=== PATIENT | female | born 1955 | race Caucasian/White ===

== ENCOUNTER 2023-10-26 12:12 | Observation (INO) | payer MEDICARE, SELFPAY ==
[2023-10-26] VITALS (11 sets, daily range): BP systolic 119–161; BP diastolic 38–81; PULSE 50–82; RESP 16–20; TEMP 36.6–37; O2SAT 94–99; BMI 36.6
--- NOTE | 2023-10-26 12:26 | PC.NURSE ---
DR MEDINA AT BEDSIDE
--- NOTE | 2023-10-26 12:33 | XR_ITS ---
PROCEDURE INFORMATION: Exam: XR Left Femur Exam date and time: 10/26/2023 1:10 PM Age: 68 years old Clinical indication: Injury or trauma; Fall; Sprain or strain; Thigh or upper leg; Left; Injury date: Today; Additional info: Fall, leg injury TECHNIQUE: Imaging protocol: Radiologic exam of the left femur. Views: 2 views. COMPARISON: CR XR KNEE LT 3V 07/01/2023 13:10 FINDINGS: Bones/joints: [id number] chronic degenerative changes of the left hip. The left femur appears intact. Again noted is a subtle irregularity of the lateral femoral condyle. A nondisplaced fracture cannot be excluded. Consider CT evaluation. Small to moderate left knee effusion. Previous ORIF of the proximal left tibia Soft tissues: Unremarkable. IMPRESSION: 1. [id number] chronic degenerative changes of the left hip 2. Small to moderate left knee effusion 3. Vague cortical irregularity of the lateral femoral condyle. Consider CT to evaluate for fracture
--- NOTE | 2023-10-26 12:33 | XR_ITS ---
PROCEDURE INFORMATION: Exam: XR Left Knee Exam date and time: 10/26/2023 1:10 PM Age: 68 years old Clinical indication: Injury or trauma; Fall; Sprain or strain; Patella or knee; Left; Injury date: Today; Prior surgery; Surgery date: 6+ months; Additional info: Left knee injury TECHNIQUE: Imaging protocol: Radiologic exam of the left knee. Views: 3 views. COMPARISON: CR XR FEMUR LT 2V 07/01/2023 13:10 FINDINGS: Bones/joints: There is a subtle irregularity along the lateral femoral condyle. Query nondisplaced fracture. Consider CT evaluation. Small to moderate left knee effusion. Prior ORIF of the proximal left tibia Soft tissues: No gas in the soft tissues. IMPRESSION: Subtle irregularity at the lateral femoral condyle, possibly representing a nondisplaced fracture. Consider CT evaluation. There is a small to moderate left knee effusion
--- NOTE | 2023-10-26 12:33 | XR_ITS ---
PROCEDURE INFORMATION: Exam: XR Left Tibia and Fibula Exam date and time: 10/26/2023 1:10 PM Age: 68 years old Clinical indication: Injury or trauma; Fall; Sprain or strain; Lower leg; Left; Injury date: Today; Additional info: Fall, injury TECHNIQUE: Imaging protocol: Radiologic exam of the left tibia and fibula. Views: 2 views. COMPARISON: CR XR KNEE LT 3V 07/01/2023 13:10 FINDINGS: Bones/joints: There is normal anatomic alignment of the left tibia and fibula at the knee and ankle. Previous ORIF of the proximal left tibia. There are calcaneal bone spurs. Again noted is a suspected lateral femoral condyle fracture. Soft tissues: Normal. IMPRESSION: 1. Prior ORIF of the proximal left tibia no evidence of an acute left tib-fib fracture 2. Suspected lateral femoral condyle fracture
--- NOTE | 2023-10-26 12:34 | HMH.EDGENADL ---
Discharge Plan Disposition Patient Disposition: Admitted Clinical Impressions Clinical Impression: Fracture of femoral condyle, left, closed Discharge ED Provider: Kiran Paz General Adult HPI <Torrie Pelaez MD - Last Filed: 10/27/23 07:59> General Chief complaint: Fall Stated complaint: L KNEE PAIN Time Seen by Provider: 10/26/23 12:24 Mode of Arrival: EMS Source of Information: Patient Limitations: No Limitations Description of Symptoms (Recalled from ER Triage Doc. by RN): pt was walking around new build and got tripped up ground level when surface type changed she landed on left leg which has previously had surgery done on it. pt pms is intact however bruising to top of left foot noted. pt states pain is mainly behind left knee History of Present Illness HPI narrative: 68-year-old female presenting today with left knee pain after a fall. Mechanical ground-level fall fell directly onto her left knee. She has a history of a tibial plateau fracture treated operatively 3 years ago. States she feels some paresthesias in her left lower extremity and difficulty with any type of extensor mechanism. No injuries elsewhere. Related Data Home Medications Medication Instructions Recorded Confirmed acetaminophen 325 mg tablet 1,000 mg PO NEEDED PRN Pain 10/26/23 10/26/23 (Tylenol) buspirone 10 mg tablet 10 mg PO BID 10/26/23 10/27/23 chlorthalidone 25 mg tablet 25 mg PO DAILY 10/26/23 10/27/23 escitalopram oxalate 10 mg tablet 10 mg PO DAILY 10/26/23 10/26/23 gabapentin 600 mg tablet 600 mg PO TIDP PRN Neuropathic Pain 10/26/23 10/27/23 ibuprofen 800 mg tablet 800 mg PO Q6HP PRN Pain, Mild 10/26/23 10/27/23 montelukast 10 mg tablet 10 mg PO HS 10/26/23 10/26/23 tizanidine 4 mg tablet 4 mg PO HSP Sleep 10/26/23 10/27/23 valsartan 80 mg tablet 80 mg PO DAILY 10/26/23 10/26/23 Allergies Allergy/AdvReac Type Severity Reaction Status Date / Time No Known Allergies Allergy Verified 10/26/23 12:25 PFS <Torrie Pelaez MD - Last Filed: 10/27/23 07:59> PFS Disclaimer: The information contained in this section may have been updated after the patient was seen, as this information can be updated by other users. Medical History (Updated 10/26/23 @ 17:29 by Sissy Helms RN) Left tibial fracture Depression Hypertension Aortic stenosis Surgical History (Updated 10/26/23 @ 17:29 by Sissy Helms RN) H/O breast biopsy Hx of cholecystectomy History of appendectomy H/O left knee surgery H/O bariatric surgery Hx of cardiac catheterization Social History (Updated 10/26/23 @ 16:23 by Kiran Paz MD) Smoking Status: Never smoker alcohol intake: never current occupational status: other Travel in the last 8 weeks: None <Kiran Paz MD - Last Filed: 10/26/23 16:23> ROS Obtained: Yes Systems reviewed as appropriate & no additional complaints except as documented Physical Exam <Torrie Pelaez MD - Last Filed: 10/27/23 07:59> Extremities Exam Extremities exam: Present other (Patient has tenderness throughout the left knee distal femur and proximal tib-fib location she is unable to extend her knee extensor mechanism unable to be measured given her pain. No significant swelling erythema or soft tissue abnormality) <Kiran Paz MD - Last Filed: 10/26/23 16:23> General General appearance: alert and in no apparent distress Respiratory Respiratory exam: Absent respiratory distress Cardiovascular Cardiovascular exam: Present regular rate Neurological Exam Neurological exam: Present alert Medical Decision Making <Torrie Pelaez MD - Last Filed: 10/27/23 07:59> Vital Signs: 10/26/23 12:13 10/26/23 12:31 10/26/23 13:10 Temperature 97.8 F Temperature Source Oral Pulse Rate 51 L 52 L Pulse Rate [Right Radial] 51 L Respiratory Rate 20 16 16 Blood Pressure 141/71 H 147/53 H Blood Pressure [Right Arm] 150/52 H Blood Pressure Mean 74 84 Blood Pressure Mean [Right Arm] 84 02 Sat by Pulse Oximetry 99 98 96 Oxygen Delivery Method Room Air 10/26/23 13:31 10/26/23 13:54 10/26/23 14:00 Temperature Temperature Source Pulse Rate 59 L Pulse Rate [Right Radial] Respiratory Rate 16 Blood Pressure 119/38 L 135/57 L 150/59 H Blood Pressure [Right Arm] Blood Pressure Mean 65 70 81 Blood Pressure Mean [Right Arm] 02 Sat by Pulse Oximetry 96 Oxygen Delivery Method 10/26/23 15:01 10/26/23 15:31 10/26/23 16:01 Temperature Temperature Source Pulse Rate Pulse Rate [Right Radial] Respiratory Rate Blood Pressure 130/49 L 141/80 H 161/70 H Blood Pressure [Right Arm] Blood Pressure Mean 77 86 97 Blood Pressure Mean [Right Arm] 02 Sat by Pulse Oximetry Oxygen Delivery Method 10/26/23 16:36 Temperature 98.6 F Temperature Source Pulse Rate 50 L Pulse Rate [Right Radial] Respiratory Rate 20 Blood Pressure 135/44 L Blood Pressure [Right Arm] Blood Pressure Mean Blood Pressure Mean [Right Arm] 02 Sat by Pulse Oximetry Oxygen Delivery Method Room Air Lab Data 10/27/23 05:32 10/27/23 05:32 Orders (Tests/Meds): ED MEDICATIONS Generic Name Dose Route Start Last Admin Trade Name Freq PRN Reason Stop Dose Admin Acetaminophen 650 mg 10/26/23 16:29 Acetaminophen 325mg Tab PO 11/25/23 16:28 Q4HP PRN Fever or Mild Pain (1-3) Hydrocodone Bitart/Acetaminophen 1 tab 10/26/23 19:42 10/27/23 07:40 Hydrocodone/Apap 5/325 Mg Tablet PO 11/25/23 19:41 1 tab Q4HP PRN Administration MODERATE TO SEVERE PAIN Albuterol/Ipratropium 3 ml 10/26/23 16:55 Ipratropium/Albuterol 3 Ml Neb IH 11/25/23 16:54 Q4HP PRN Shortness Of Breath Morphine Sulfate 2 mg 10/26/23 16:29 10/27/23 05:07 Morphine 4mg/Ml Syringe IV 11/25/23 16:28 2 mg Q4HP PRN Administration Severe Pain (7-10) Ondansetron HCl 4 mg 10/26/23 16:29 Ondansetron 4mg/2ml Vial IV 11/25/23 16:28 Q8HP PRN Nausea Sodium Chloride 10 ml 10/26/23 17:51 Sodium Chloride 0.9% 10ml Flush Syringe IV 11/25/23 17:50 NEEDED PRN Maintain IV Site Discontinued Medications Generic Name Dose Route Start Last Admin Trade Name Freq PRN Reason Stop Dose Admin Morphine Sulfate 4 mg 10/26/23 12:33 10/26/23 12:49 Morphine 4mg/Ml Syringe IV 10/26/23 12:34 4 mg ONCE ONE Administration Ondansetron HCl 4 mg 10/26/23 12:48 10/26/23 12:50 Ondansetron 4mg/2ml Vial IV 10/26/23 12:49 4 mg ONCE ONE Administration Oxycodone HCl 5 mg 10/26/23 15:28 10/26/23 15:40 Oxycodone 5mg Immediate Release Tablet PO 10/26/23 15:29 5 mg ONCE ONE Administration ORDERS Category Date Time Status CT knee LT wo con Stat Cat Scan 10/26/23 14:11 Completed Consult to Orthopedic Surgery [CONS] Routine Cons 10/26/23 16:43 Ordered Femur XR left 2 views [XR femur LT 2V] Stat Exams 10/26/23 12:33 Completed Knee XR left 3 views [XR knee LT 3V] Stat Exams 10/26/23 12:33 Completed Tibia/fibula XR left 2 views [XR tibia fibula LT 2V] Exams 10/26/23 12:33 Completed Stat BMP [Basic Metabolic Panel] Stat Lab 10/26/23 17:30 Completed Basic Metabolic Panel AML[facility] Lab 10/27/23 05:32 Completed Basic Metabolic Panel [facility] Lab 10/28/23 06:00 Ordered Basic Metabolic Panel [facility] Lab 10/29/23 06:00 Ordered CBC w/Auto Diff [Complete Blood Count Auto Diff] Stat Lab 10/26/23 17:30 Completed Complete Blood Count Auto Diff AML[facility] Lab 10/27/23 05:32 Completed Complete Blood Count Auto Diff [facility] Lab 10/28/23 06:00 Ordered Complete Blood Count Auto Diff AMLAB Lab 10/29/23 06:00 Ordered Medical Decision Narrative: 68-year-old with distal femur knee and proximal tibia pain after a ground-level fall. Will get plain films differential includes periprosthetic fracture, hardware loosening, etc. Morphine has been administered will reassess after her x-rays are performed and interpreted. <Kiran Paz MD - Last Filed: 10/26/23 16:23> Sancho Inquiry Pt receiving controlled substance: No Vital Signs: 10/26/23 12:13 10/26/23 12:31 10/26/23 13:10 Temperature 97.8 F Temperature Source Oral Pulse Rate 51 L 52 L Pulse Rate [Right Radial] 51 L Respiratory Rate 20 16 16 Blood Pressure 141/71 H 147/53 H Blood Pressure [Right Arm] 150/52 H Blood Pressure Mean 74 84 Blood Pressure Mean [Right Arm] 84 02 Sat by Pulse Oximetry 99 98 96 Oxygen Delivery Method Room Air 10/26/23 13:31 10/26/23 13:54 10/26/23 14:00 Temperature Temperature Source Pulse Rate 59 L Pulse Rate [Right Radial] Respiratory Rate 16 Blood Pressure 119/38 L 135/57 L 150/59 H Blood Pressure [Right Arm] Blood Pressure Mean 65 70 81 Blood Pressure Mean [Right Arm] 02 Sat by Pulse Oximetry 96 Oxygen Delivery Method 10/26/23 15:01 10/26/23 15:31 10/26/23 16:01 Temperature Temperature Source Pulse Rate Pulse Rate [Right Radial] Respiratory Rate Blood Pressure 130/49 L 141/80 H 161/70 H Blood Pressure [Right Arm] Blood Pressure Mean 77 86 97 Blood Pressure Mean [Right Arm] 02 Sat by Pulse Oximetry Oxygen Delivery Method 10/26/23 16:36 Temperature 98.6 F Temperature Source Pulse Rate 50 L Pulse Rate [Right Radial] Respiratory Rate 20 Blood Pressure 135/44 L Blood Pressure [Right Arm] Blood Pressure Mean Blood Pressure Mean [Right Arm] 02 Sat by Pulse Oximetry Oxygen Delivery Method Room Air Orders (Tests/Meds): ED MEDICATIONS Generic Name Dose Route Start Last Admin Trade Name Freq PRN Reason Stop Dose Admin Acetaminophen 650 mg 10/26/23 16:29 Acetaminophen 325mg Tab PO 11/25/23 16:28 Q4HP PRN Fever or Mild Pain (1-3) Hydrocodone Bitart/Acetaminophen 1 tab 10/26/23 19:42 10/27/23 07:40 Hydrocodone/Apap 5/325 Mg Tablet PO 11/25/23 19:41 1 tab Q4HP PRN Administration MODERATE TO SEVERE PAIN Albuterol/Ipratropium 3 ml 10/26/23 16:55 Ipratropium/Albuterol 3 Ml Neb IH 11/25/23 16:54 Q4HP PRN Shortness Of Breath Morphine Sulfate 2 mg 10/26/23 16:29 10/27/23 05:07 Morphine 4mg/Ml Syringe IV 11/25/23 16:28 2 mg Q4HP PRN Administration Severe Pain (7-10) Ondansetron HCl 4 mg 06/02/24 16:29 Ondansetron 4mg/2ml Vial IV 11/25/23 16:28 Q8HP PRN Nausea Sodium Chloride 10 ml 10/26/23 17:51 Sodium Chloride 0.9% 10ml Flush Syringe IV 11/25/23 17:50 NEEDED PRN Maintain IV Site Discontinued Medications Generic Name Dose Route Start Last Admin Trade Name Freq PRN Reason Stop Dose Admin Morphine Sulfate 4 mg 10/26/23 12:33 10/26/23 12:49 Morphine 4mg/Ml Syringe IV 10/26/23 12:34 4 mg ONCE ONE Administration Ondansetron HCl 4 mg 10/26/23 12:48 10/26/23 12:50 Ondansetron 4mg/2ml Vial IV 10/26/23 12:49 4 mg ONCE ONE Administration Oxycodone HCl 5 mg 10/26/23 15:28 10/26/23 15:40 Oxycodone 5mg Immediate Release Tablet PO 10/26/23 15:29 5 mg ONCE ONE Administration ORDERS Category Date Time Status CT knee LT wo con Stat Cat Scan 10/26/23 14:11 Completed Consult to Orthopedic Surgery [CONS] Routine Cons 10/26/23 16:43 Ordered Femur XR left 2 views [XR femur LT 2V] Stat Exams 10/26/23 12:33 Completed Knee XR left 3 views [XR knee LT 3V] Stat Exams 10/26/23 12:33 Completed Tibia/fibula XR left 2 views [XR tibia fibula LT 2V] Exams 10/26/23 12:33 Completed Stat BMP [Basic Metabolic Panel] Stat Lab 10/26/23 17:30 Completed Basic Metabolic Panel AMLAB Lab 10/27/23 05:32 Completed Basic Metabolic Panel AMLAB Lab 10/28/23 06:00 Ordered Basic Metabolic Panel [facility]AB Lab 10/29/23 06:00 Ordered CBC w/Auto Diff [Complete Blood Count Auto Diff] Stat Lab 10/26/23 17:30 Completed Complete Blood Count Auto Diff AMLAB Lab 10/27/23 05:32 Completed Complete Blood Count Auto Diff AMLAB Lab 10/28/23 06:00 Ordered Complete Blood Count Auto Diff AMLAB Lab 10/29/23 06:00 Ordered Medical Decision Narrative: 68-year-old with distal femur knee and proximal tibia pain after a ground-level fall. Will get plain films differential includes periprosthetic fracture, hardware loosening, etc. Morphine has been administered will reassess after her x-rays are performed and interpreted. Kiran Paz upon assumption of care patient was hemodynamically stable. X-ray shows questionable fracture, CT was obtained and formal read pending at my assumption of care. It appears on my informal interpretation that there is a lateral condyle fracture of the left femur. Formal read shows nondisplaced lateral femoral condyle fracture with left knee hemarthrosis. Orthopedics is not on-call therefore the case was discussed with [facility] regarding management. For continued pain oxycodone was administered. The case was discussed with [facility] orthopedics on-call who recommended TROM brace at 30 degrees, nonweightbearing and follow-up in clinic as long as ligamentous exam was not frankly unstable. Upon my exam knee is grossly stable from a ligamentous standpoint. Unfortunately we do not have TROM braces here. My alternative plan was to put patient in extension, remove the brace twice daily with nonweightbearing passive range of motion to mitigate risk of DVT. However patient is unsafe to discharge home at this time given that she cannot transfer safely nor get into her home as there are multiple steps. Given this the case was discussed with hospital medicine, I think the most appropriate plan is to admit the patient to their service as nonweightbearing status. Orthopedics resumes inpatient consultation tomorrow and they can determine optimal bracing, nonweightbearing transfers with physical therapy and appropriate disposition at that time. Case was discussed with hospital medicine who will admit the patient their service for continued evaluation at this time. Critical Care <Kiran Paz MD - Last Filed: 10/26/23 16:23> Critical Care Time Critical Care Time: No
[2023-10-26] MEDS: MORPHINE 4MG/ML SYRINGE 4 MG IV (12:49)
[2023-10-26] MEDS: ONDANSETRON 4MG/2ML VIAL 4 MG IV (12:50)
--- NOTE | 2023-10-26 14:10 | PC.NURSE ---
attempted to ambulate patient however patient unable to bear weight, ER Md notified
--- NOTE | 2023-10-26 14:11 | CT_ITS ---
PROCEDURE INFORMATION: Exam: CT Left Lower Extremity Without Contrast, Knee Exam date and time: 10/26/2023 2:24 PM Age: 68 years old Clinical indication: Injury or trauma; Fall; Sprain or strain; Patella or knee; Left; Injury date: Today; Prior surgery; Surgery date: 6+ months; Additional info: Knee injury, unable to bear weight TECHNIQUE: Imaging protocol: CT of the left lower extremity without contrast was performed. Exam focused on the knee. Radiation optimization: All CT scans at this facility use at least one of these dose optimization techniques: automated exposure control; mA and/or kV adjustment per patient size (includes targeted exams where dose is matched to clinical indication); or iterative reconstruction. COMPARISON: CR XR KNEE LT 3V 07/01/2023 13:10 FINDINGS: Bones/joints: There is a nondisplaced fracture through the lateral femoral condyle of the left knee. Previous ORIF of the proximal left tibia. There is a high density left knee effusion likely representing a hemarthrosis Soft tissues: The structures of the popliteal fossa are unremarkable. IMPRESSION: Nondisplaced lateral femoral condyle fracture of the left knee with left knee hemarthrosis
--- NOTE | 2023-10-26 14:11 | PC.NURSE ---
PT ATTEMPTED TO STAND ON L KNEE , AND WAS UNABLE TO BEAR ANY WEIGHT
--- NOTE | 2023-10-26 14:17 | PC.NURSE ---
PT TO CT
--- NOTE | 2023-10-26 15:21 | PC.NURSE ---
DR DAO AT BEDSIDE TO UPDATE PT
--- NOTE | 2023-10-26 15:21 | PC.NURSE ---
IMAGES POWER SHARED WITH [facility]
--- NOTE | 2023-10-26 15:22 | PC.NURSE ---
SPOKE WITH [facility] FOR ORTHO CONSULT, WILL CALL BACK ONCE IMAGES ARE RECEIVED
[2023-10-26] MEDS: OXYCODONE 5MG IMMEDIATE RELEASE TABLET 5 MG PO (15:40)
--- NOTE | 2023-10-26 15:53 | PC.NURSE ---
DR DAO SPEAKING WITH [facility]
--- NOTE | 2023-10-26 16:23 | PC.NURSE ---
[employer] NOTIFIED OF ADMISSION
--- NOTE | 2023-10-26 16:34 | PC.NURSE ---
Called report to lucius brooks on 2nd floor and answered all questions
--- NOTE | 2023-10-26 16:39 | P.HP_ITS ---
History of Present Illness *Admission Date: 10/26/23 *Reason for visit:: fall *History of present illness: Patient is a 68-year-old female who presents to the hospital after a fall. According to patient she reported directly onto her left knee, ankle and the ground-level fall, she hit her knee Into the ground 3 has noticed weakness in her left leg below the knee patient mentions she has pain 10/10 intensity, nonradiating, localized, previous constant sharp. Patient denied associated dizziness lightheadedness diarrhea constipation dysuria fevers and chills chest pain shortness of breath and abdominal pain. [facility] Disclaimer: The information contained in this section may have been updated after the patient was seen, as this information can be updated by other users. Social History (Updated 10/26/23 @ 16:23 by Kiran Paz MD) Smoking Status: Never smoker alcohol intake: never current occupational status: other Travel in the last 8 weeks: None Review of Systems Review of Systems Review of systems:: pertinent systems reviewed and negative unless documented below Meds Home Medications and Allergies New Prescriptions to Start Prescriptions: Allergies Allergy/AdvReac Type Severity Reaction Status Date / Time No Known Allergies Allergy Verified 10/26/23 12:25 Exam Data for Last 24 hours Vital signs and Labs for Last 24 Hours: Temp Pulse Resp BP Pulse Ox O2 Del Method 98.6 F 50 L 20 135/44 L 96 Room Air 10/26/23 16:36 10/26/23 16:36 10/26/23 16:36 10/26/23 16:36 10/26/23 13:31 10/26/23 16:36 I & O for Last 24 hours: Intake & Output 10/23/23 10/24/23 10/25/23 10/26/23 23:59 23:59 23:59 23:59 Weight 99.79 kg Constitutional Constitutional: no acute distress *Routine HEENT Exam Head: Present normocephalic Eye: Present EOMI and PERRL ENT: Present mucous membranes moist *Routine Neck Exam Neck: Present supple; Absent lymphadenopathy *Routine Respiratory Exam Respiratory: Present CTA bilaterally *Routine Cardiovascular Exam Cardiovascular: Present RRR *Routine Abdominal Exam Abdominal: Present soft and normoactive bowel sounds; Absent tenderness *Routine Rectal Exam Rectal:: deferred *Routine Genitalia Exam Genitalia:: deferred *Routine Extremities Exam Extremities: Absent cyanosis, clubbing or edema Comments: left knee is bruised, swollen, tender *Routine Skin Exam Skin: Present warm; Absent rash *Routine Neurological Exam Neurological: Present alert and oriented X3 Assessment and Plan *Assessment and plan (1) Fracture of femoral condyle, left, closed: Status: Acute Category: Medical Code(s): S72.412A - Displaced unspecified condyle fracture of lower end of left femur, initial encounter for closed fracture Plan Patient is a 68-year-old female who presents to the hospital after a fall. According to patient she reported directly onto her left knee, ankle and the ground-level fall, she hit her knee Into the ground 3 has noticed weakness in her left leg below the knee patient mentions she has pain 10/10 intensity, nonradiating, localized, previous constant sharp. Patient denied associated dizziness lightheadedness diarrhea constipation dysuria fevers and chills chest pain shortness of breath and abdominal pain. Assessment and plan Mechanical fall Nondisplaced fracture of the left lateral femoral condyle Hemarthrosis Consult PT/OT Consult orthopedics Pain control Bedrest Nonweightbearing for now Knee brace up to orthopedics X-ray left knee, Tibia-fibula revealed HTN resume home meds, meds need to be comfirmed History of Asthma - resume home meds, meds need to be confirmed Check CBC, BMP DVT prophylaxis-heparin
--- NOTE | 2023-10-26 16:55 | PC.NURSE ---
arrived by stretcher from ED
[2023-10-26 17:37] LABS: Basophils # 0.1 K/mm3 (0-0.2); Basophils % 0.6 % (0.1-2.0); Eosinophils # 0.3 K/mm3 (0.0-0.4); Eosinophils % 4.6 % (0.1-12.0); Hematocrit 34.1 % (37.0-47.0); Hemoglobin 10.5 g/dL (12.2-16.2); Lymphocytes # 1.6 K/mm3 (0.7-4.5); Lymphocytes % 21.9 % (10-50); Mean Corpuscular HGB Conc 30.7 g/dL (31.8-35.4); Mean Corpuscular Hemoglobin 27.1 pg (27.0-31.2); Mean Corpuscular Volume 88.3 fl (81-99); Mean Platelet Volume 8.9 fl (7.4-10.4); Monocytes # 0.3 K/mm3 (0.1-1.0); Monocytes % 4.1 % (1.7-9.3); Neutrophils # 5.1 K/mm3 (1.8-7.8); Neutrophils % 68.9 % (37.0-80.0); Platelet Count 328 K/mm3 (142-424); Red Blood Count 3.86 M/mm3 (4.20-5.40); Red Cell Distribution Width 15.5 % (11.5-17.5); White Blood Count 7.4 K/mm3 (4.8-10.8)
[2023-10-26] MEDS: MORPHINE 4MG/ML SYRINGE 2 MG IV ×2 (17:37→21:50)
[2023-10-26 17:42] LABS: Chloride 102 mmol/L (98-107)
[2023-10-26 17:43] LABS: Potassium 3.7 mmoL/L (3.5-5.1); Sodium 141 mmol/L (136-145)
[2023-10-26 17:45] LABS: Blood Urea Nitrogen 13 mg/dl (7-17); Creatinine Clearance Estimated 86 mL/min (50-200); Estimated Glomerular Filt Rate 83 ml/min (>60); GFR (African American) 101 ML/MIN (>60)
[2023-10-26 17:46] LABS: Anion Gap 13.7 mEq/L (5-15); Calcium 9.4 mg/dl (8.4-10.2); Carbon Dioxide 29 mmol/L (22.0-30.0); Glucose 131 mg/dl (74-100)
[2023-10-26] MEDS: HYDROCODONE/APAP 5/325 MG TABLET 1 TAB PO ×2 (19:49→23:26)
[2023-10-27] MEDS: HYDROCODONE/APAP 5/325 MG TABLET 1 TAB PO ×2 (03:48→07:40)
[2023-10-27 04:00] VITALS: BP 119/68; PULSE 55; RESP 16; TEMP 36.8; O2SAT 94; BMI 39.0
[2023-10-27] MEDS: MORPHINE 4MG/ML SYRINGE 2 MG IV ×3 (05:07→13:42)
--- NOTE | 2023-10-27 05:15 | PC.NURSE ---
Pt is A&O, on room air, and has rested throughout the night. Pt has complained of some pain in her left knee. Pain meds were provided as well as an ice pack in which pt states really helped reduce the pain. No other complaints at this time, call light within reach.
[2023-10-27 06:13] LABS: Basophils # 0.1 K/mm3 (0-0.2); Basophils % 0.9 % (0.1-2.0); Chloride 102 mmol/L (98-107); Eosinophils # 0.4 K/mm3 (0.0-0.4); Eosinophils % 6.1 % (0.1-12.0); Hematocrit 31.5 % (37.0-47.0); Hemoglobin 9.7 g/dL (12.2-16.2); Lymphocytes # 1.6 K/mm3 (0.7-4.5); Lymphocytes % 25.7 % (10-50); Mean Corpuscular HGB Conc 30.7 g/dL (31.8-35.4); Mean Corpuscular Hemoglobin 27.5 pg (27.0-31.2); Mean Corpuscular Volume 89.4 fl (81-99); Mean Platelet Volume 8.3 fl (7.4-10.4); Monocytes # 0.3 K/mm3 (0.1-1.0); Monocytes % 4.5 % (1.7-9.3); Neutrophils # 3.9 K/mm3 (1.8-7.8); Neutrophils % 62.8 % (37.0-80.0); Platelet Count 311 K/mm3 (142-424); Red Blood Count 3.52 M/mm3 (4.20-5.40); Red Cell Distribution Width 15.4 % (11.5-17.5); White Blood Count 6.2 K/mm3 (4.8-10.8)
[2023-10-27 06:14] LABS: Potassium 3.5 mmoL/L (3.5-5.1); Sodium 138 mmol/L (136-145)
[2023-10-27 06:17] LABS: Anion Gap 5.5 mEq/L (5-15); Blood Urea Nitrogen 13 mg/dl (7-17); Calcium 8.9 mg/dl (8.4-10.2); Carbon Dioxide 34 mmol/L (22.0-30.0); Creatinine Clearance Estimated 92 mL/min (50-200); Estimated Glomerular Filt Rate 83 ml/min (>60); GFR (African American) 101 ML/MIN (>60); Glucose 88 mg/dl (74-100)
--- NOTE | 2023-10-27 07:43 | PC.NURSE ---
pt called out asking for pain meds. when entering the room, patient had home meds out and taking them. pt stating she was told she was observation and to take her own meds . patient stated she took her gabapentin, chlorthalidone, aspirin, loratadine, and buspirone. instructed pt not to take any more of her home meds, home meds put away in patients room. pt knows if she needs any medicine to let this nurse know so we can get a order for it. gave pt an ice pack and placed behind lt knee. cb within reach
--- NOTE | 2023-10-27 07:51 | HMH.PHAINT1 ---
Pharmacy Intervention Comments: MEDICATION RECONCILIATION COMPLETED ON PATIENT USING EXTERNAL FILL HISTORY FROM PHARMACY. -JOEL SHELL, JOSIASD
[2023-10-27 07:53] VITALS: BP 125/62; PULSE 52; RESP 16; TEMP 36.8; O2SAT 94
--- NOTE | 2023-10-27 09:36 | HMH.PTEV ---
Physical Therapy Evaluation Rehab PT IP Evaluation Start: 10/26/23 16:43 Freq: ONCE Status: Active Protocol: Document 10/27/23 09:29 JILLIAN (Rec: 10/27/23 09:36 JILLIAN [email or web address]) Subjective/History History History Per H&P: Patient is a 68-year-old female who presents to the hospital after a fall. According to patient she reported directly onto her left knee, ankle and the ground-level fall, she hit her knee Into the ground 3 has noticed weakness in her left leg below the knee patient mentions she has pain 10/10 intensity, nonradiating, localized, previous constant sharp. Patient denied associated dizziness lightheadedness diarrhea constipation dysuria fevers and chills chest pain shortness of breath and abdominal pain. Subjective Subjective PLOF per pt report: Lives alone in a camper. Works as a pharmacist. Driving prior to admission. Has 4 TEQUILA camper. Pt reports she has plans to d/ c home with sister who lives in a single story home with 2 TEQUILA (no HRs). Pt IND with functional mobility and ADLs. Pt owns a standard walker, cane, and w/c. New diagnosis of cancer in past 12 No months? Rehab PT IP Eval Objective Appearance Patient Behavior Appropriate,Cooperative Patient Orientation Person,Place,Birthday, Situation Difficulty following instructions none Speech Pattern Clear Ambulation Patient Able to Ambulate Yes Ambulation Observation IP General Gait Pattern Observation Decrease Weight Bear (L) Ambulation Distance (feet) 2 Ambulation Assistive Device Rolling Walker Ambulation Ability Contact Guard/Hand Hold Balance Ability to Arise Able, uses arms to help Sitting Balance Steady, safe Standing Balance Steady, wide stance Transfers Bed Transfer Ability Minimal x 1 (25% assist) Sit to Stand Bed Transfer Ability Contact Guard/Hand Hold Rehab PT IP prob,goals,plan Problems Date of Evaluation: 10/27/23 PT IP Problems Bed Mobility,Transfers,Gait, Balance,Safety Rehab Potential Rehab Potential Good Equipment Needs Assistive Devices Rolling / Wheeled Walker Plan PT Intervention Plan Bed Mobility,Transfers,Gait, Balance,Safety,Therapeutic Exercise Other Intervention Plan 1-2 times PT Plan Frequency Daily Duration LOS Discharge Goals Bed Transfer Ability Supervision/Stand by Sit to Stand Chair Transfer Ability Supervision/Stand by Ambulation Assistive Device Rolling Walker Ambulation Distance (feet) 5 Discharge Plan PT Discharge Plan Initial physical therapy evaluation performed. Patient presents below baseline at this time in functional mobility, transfers, gait, and strength. Pt able to maintain NWB on LLE but hopping distance was limited by pain. Pt has 2 TEQUILA her sister's home (sister is around during the day). PT feels that pt would be safe to return home if pt has adequate assistance to negotiate steps into home. If assistance is not available, pt may benefit from short-term rehab to improve strength prior to d/c home. Pt would benefit from skilled PT while at [facility] to prevent further functional decline and maximize safety with mobility. PT recommending home health PT services to address deficits. Eval Complexity Eval Charge Codes 93106 - Moderate Complexity PHYSICIAN CERTIFICATION: I certify the specified therapy services for Elaine Howard are required, authorized, and reviewed every 30 days.
--- NOTE | 2023-10-27 09:49 | PC.NURSE ---
Deysi came out saying that pt asked her for her bag of meds to be put on her bedside table. this nurse and MAGALYS mckeon went to check on pt and she had her medicine bag open saying she had a headache and was going to take her bp meds. pts bp was 116/55, hr 50. locked pts meds in tool maintenance worker room. educated pt again the risk of taking her medicine without nursing knowing. instructed pt to let this nurse know if she has any questions/concerns about her medications that she is or is not getting here.
--- NOTE | 2023-10-27 09:53 | HMH.OTEV ---
OT Inpatient Evaluation Rehab OT IP Evaluation Start: 10/26/23 16:43 Freq: ONCE Status: Active Protocol: Document 10/27/23 09:30 RMARSHALL (Rec: 10/27/23 09:53 RMARSHALL Laptop) Rehab OT IP Assessment Subjective History Pt was admitted to this facility on 10/26/23 due to fall . Patient is a 68-year-old female who presents with pain in L LE. According to patient she reported directly onto her left knee, ankle and the ground-level fall, she hit her knee into the ground 3 has noticed weakness in her left leg below the knee patient mentions she has pain 10/10 intensity, nonradiating, localized, previous constant sharp. Patient denied associated dizziness lightheadedness diarrhea constipation dysuria fevers and chills chest pain shortness of breath and abdominal pain. PLOF: Pt stated PLOF was independent with all ADLs and IADLs prior to being admitted. 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 Pt currently lives in a camper with 4 steps as they are building a house, however, pt stated they would be living with sister after discharge for recovery. Pt stated sister has about 2 steps to enter home and arlet of house is flat/no carpet. Pt stated housing will have a roll in shower and shower seat in shower. Pt stated sister is able to be there with her as sister is also taking care of other family members. Pt stated they have a wheelchair, standard walker, and cane for functional mobility. Subjective I am in a lot of pain. Pt was supine in bed when therapy entered room. Pt was agreeable to participate in OT evaluation this morning. Pt was oriented x3. Pt agreed to sit on EOB. Pt went from supine to EOB with Min Assist. Pt was able to hold static sitting balance for ~2 minutes with SBA. Pt then completed a sit to stand transfer with Min Assist with walker. Pt was able to hold static standing balance for ~1 with CGA with walker. Pt then completed functional mobility of 5 hops with walker with Min Assist. Pt then went from standing to sitting on EOB with Min Assist with walker. Pt then went from EOB to supine with Min Assist. Pt was left with call light and all other needs within reach. Objective Patient Orientation Person,Name,Situation Right Upper Extremity Gross ROM WFL Left Upper Extremity Gross ROM WFL Bed Mobility bed mobility-scooting,bed mobility - supine/sit Assist Level Minimal x 1 (25% assist) Transfer Training Sit/Stand Transfer Assist Level Minimal x 1 (25% assist) Rehab OT IP prob,goals,plan Problems Date of Evaluation: 10/27/23 OT IP Problems Bed Mobility,Transfers,Balance ,Self care,Safety Rehab Potential Rehab Potential Good Equipment Needs Assistive Devices Straight Cane,Standard Walker, Rolling / Wheeled Walker, Wheelchair Plan OT intervention Plan Bed Mobility,Transfers,Balance ,Self care,Safety,Therapeutic Exercise OT Plan Frequency Daily Duration LOS Discharge Goals Bed Mobility Ability Standby Assistance Sit to Stand Chair Transfer Ability Contact Guard/Hand Hold Chair Transfer Ability Contact Guard/Hand Hold Chair Transfer Technique Stand Pivot Chair Transfer Assistive Devices Rolling Walker Feeding Ability Assist with Tray Set Up Lower Body Dressing Ability Minimal Assistance Upper Body Dressing Ability Standby Assistance Bathing Ability Moderate Assistance Performing Toilet Hygiene Ability Minimal Assistance Overall Commode/Toilet Transfer Ability Minimal Assistance Commode/Toilet Transfer Technique Stand Pivot Commode/Toilet Transfer Assistive Grab Bars Devices Oral Care Assist Independent Decrease in Endurance No Discharge Plan OT Discharge Plan Pt will continue to be seen for LOS while at this facility to receive skilled OT services. Therapist recommends short term rehab following discharge from hospital. If pt refuses this plan, pt can return home with sister and family assistance. If she returns home with sister, therapist recommends OT evaluation for continued skilled therapy. Skilled therapy is important in order for patient to improve strength safety, endurance, ADL independence, and functional transfers to reach PLOF. Eval Complexity Eval Charge Codes 16494 - Moderate Complexity PHYSICIAN CERTIFICATION: I certify the specified therapy services for Elaine Howard are required, authorized, and reviewed every 30 days.
[2023-10-27] MEDS: APAP/HYDROCODONE 325MG/7.5MG TAB 1 TAB PO (11:51)
--- NOTE | 2023-10-27 12:54 | EXP.ORTH.CON ---
History of Present Illness *Admission Date: 10/26/23 *History of present illness: Patient is a 68-year-old female who presents to the hospital after a fall. According to patient she reported directly onto her left knee, ankle and the ground-level fall, she hit her knee Into the ground 3 has noticed weakness in her left leg below the knee patient mentions she has pain 10/10 intensity, nonradiating, localized, previous constant sharp. Patient denied associated dizziness lightheadedness diarrhea constipation dysuria fevers and chills chest pain shortness of breath and abdominal pain. [facility] Disclaimer: The information contained in this section may have been updated after the patient was seen, as this information can be updated by other users. Medical History (Updated 10/27/23 @ 12:56 by Timothy Bryant DO) Left tibial fracture Depression Hypertension Aortic stenosis Surgical History (Updated 10/26/23 @ 17:29 by Sissy Helms RN) H/O breast biopsy Hx of cholecystectomy History of appendectomy H/O left knee surgery H/O bariatric surgery Hx of cardiac catheterization Social History (Updated 10/26/23 @ 16:23 by Kiran Paz MD) Smoking Status: Never smoker alcohol intake: never current occupational status: other Travel in the last 8 weeks: None Meds Home Medications and Allergies Home Medications Medication Instructions Recorded Confirmed Type acetaminophen 325 mg tablet 1,000 mg PO NEEDED PRN Pain 10/26/23 10/26/23 History (Tylenol) buspirone 10 mg tablet 10 mg PO BID 10/26/23 10/27/23 History chlorthalidone 25 mg tablet 25 mg PO DAILY 10/26/23 10/27/23 History escitalopram oxalate 10 mg tablet 10 mg PO DAILY 10/26/23 10/26/23 History gabapentin 600 mg tablet 600 mg PO TIDP PRN Neuropathic Pain 10/26/23 10/27/23 History ibuprofen 800 mg tablet 800 mg PO Q6HP PRN Pain, Mild 10/26/23 10/27/23 History montelukast 10 mg tablet 10 mg PO HS 10/26/23 10/26/23 History tizanidine 4 mg tablet 4 mg PO HSP Sleep 10/26/23 10/27/23 History valsartan 80 mg tablet 80 mg PO DAILY 10/26/23 10/26/23 History New Prescriptions to Start Prescriptions: Allergies Allergy/AdvReac Type Severity Reaction Status Date / Time No Known Allergies Allergy Verified 10/26/23 12:25 Ortho Exam (Inpt) Vital signs and Labs for Last 24 Hours: Temp Pulse Resp BP Pulse Ox O2 Del Method 98.3 F 52 L 16 125/62 94 L Room Air 10/27/23 07:53 10/27/23 07:53 10/27/23 07:53 10/27/23 07:53 10/27/23 07:53 10/27/23 09:00 Laboratory Results - last 24 hr 10/26/23 17:30: WBC 7.4, RBC 3.86 L, Hgb 10.5 L, Hct 34.1 L, MCV 88.3, MCH 27.1, MCHC 30.7 L, RDW 15.5, Plt Count 328, MPV 8.9, Neut % (Auto) 68.9, Lymph % (Auto) 21.9, [place] % (Auto) 4.1, Eos % (Auto) 4.6, Baso % (Auto) 0.6, Neut # (Auto) 5.1, Lymph # (Auto) 1.6, [place] # (Auto) 0.3, Eos # (Auto) 0.3, Baso # (Auto) 0.1, Sodium 141, Potassium 3.7, Chloride 102, Carbon Dioxide 29, Anion Gap 13.7, BUN 13, Creatinine 0.70, Estimated Creat Clear 86, Estimated GFR 83, Est GFR ( Amer) 101, Glucose 131 H, Calcium 9.4 10/27/23 05:32: WBC 6.2, RBC 3.52 L, Hgb 9.7 L, Hct 31.5 L, MCV 89.4, MCH 27.5, MCHC 30.7 L, RDW 15.4, Plt Count 311, MPV 8.3, Neut % (Auto) 62.8, Lymph % (Auto) 25.7, [place] % (Auto) 4.5, Eos % (Auto) 6.1, Baso % (Auto) 0.9, Neut # (Auto) 3.9, Lymph # (Auto) 1.6, [place] # (Auto) 0.3, Eos # (Auto) 0.4, Baso # (Auto) 0.1, Sodium 138, Potassium 3.5, Chloride 102, Carbon Dioxide 34 H, Anion Gap 5.5, BUN 13, Creatinine 0.70, Estimated Creat Clear 92, Estimated GFR 83, Est GFR ( Amer) 101, Glucose 88 D, Calcium 8.9 I & O for Labs for Last 24 Hours: Intake & Output 10/24/23 10/25/23 10/26/23 10/27/23 23:59 23:59 23:59 23:59 Intake Total 480 / 600 600 / 600 Output Total 0 / 0 600 / 600 Balance 480 / 600 0 / 0 Weight 220 lb 234 lb 4.8 oz Constitutional: Present no acute distress Head: Present normocephalic Comment:: Left knee: Healed surgical scars of the proximal tibia. Mild effusion. Tenderness diffusely. Range of motion limited by pain. CT scan left femur shows nondisplaced small lateral femoral condyle fracture. Results Labs 10/27/23 05:32 10/27/23 05:32 Labs: Abnormal lab results 10/26/23 10/27/23 Range/Units 17:30 05:32 RBC 3.86 L 3.52 L (4.20-5.40) M/mm3 Hgb 10.5 L 9.7 L (12.2-16.2) g/dL Hct 34.1 L 31.5 L (37.0-47.0) % MCHC 30.7 L 30.7 L (31.8-35.4) g/dL Carbon Dioxide 34 H (22.0-30.0) mmol/L Glucose 131 H (74-100) mg/dl H & H 10/26/23 10/27/23 Range/Units 17:30 05:32 Hgb 10.5 L 9.7 L (12.2-16.2) g/dL Hct 34.1 L 31.5 L (37.0-47.0) % All other labs normal. Assessment and Plan *Assessment and plan (1) Fracture of femoral condyle, left, closed: Status: Acute Qualifiers: Encounter type: initial encounter Fracture alignment: nondisplaced Qualified Code(s): S72.415A - Nondisplaced unspecified condyle fracture of lower end of left femur, initial encounter for closed fracture Category: Medical Code(s): S72.412A - Displaced unspecified condyle fracture of lower end of left femur, initial encounter for closed fracture Plan I reviewed the CT scan with the patient. There is a nondisplaced fracture of the lateral femoral condyle. We will get her fitted for a T ROM brace with therapy. She can be toe-touch weightbearing on the left lower extremity but protect weightbearing on the left lower extremity. This is a nonoperative situation does not require surgery for the nondisplaced fracture. She will follow-up in the clinic in 2 weeks for repeat x-ray.
--- NOTE | 2023-10-27 13:21 | SW/DCPLANNER ---
I spoke w/ this patient regarding plans once medically stable for discharge. Per PT/OT patient can discharge home w/ family or placement if needed. Patient is not interested in placement at this time. Patient stated that she plans to discharge home w/ her sister and is agreeable to home health services. Patient prefers to use [facility]. Patient information/order faxed to [facility] and services will start tomorrow for this patient. Patient also stated that she has a rolling walker, wheelchair, cane and BSC at home. Patient is expected to discharge home later today.
--- NOTE | 2023-10-27 13:28 | P.DS_ITS ---
General Admission date:: 10/26/23 Discharge date: 10/27/23 HPI HPI HPI: Patient is a 68-year-old female who presents to the hospital after a fall. According to patient she reported directly onto her left knee, ankle and the ground-level fall, she hit her knee Into the ground 3 has noticed weakness in her left leg below the knee patient mentions she has pain 10/10 intensity, nonradiating, localized, previous constant sharp. Patient denied associated dizziness lightheadedness diarrhea constipation dysuria fevers and chills chest pain shortness of breath and abdominal pain. Hospital Course Hospital Course Hospital Course: Patient is a 68-year-old female who presents to the hospital after a fall. According to patient she reported directly onto her left knee, ankle and the ground-level fall, she hit her knee Into the ground 3 has noticed weakness in her left leg below the knee patient mentions she has pain 10/10 intensity, nonradiating, localized, previous constant sharp. Patient denied associated dizziness lightheadedness diarrhea constipation dysuria fevers and chills chest pain shortness of breath and abdominal pain. Assessment and plan Mechanical fall Nondisplaced fracture of the left lateral femoral condyle Hemarthrosis Patient was evaluated by orthopedics and PT/OT, patient was recommended no surgical managment at this time and Home care and f/u as OP. orthopedics referral given for follow up Exam Data for Last 24 hours Vital signs and Labs for Last 24 Hours: Temp Pulse Resp BP Pulse Ox O2 Del Method 98.3 F 52 L 16 125/62 94 L Room Air 10/27/23 07:53 10/27/23 07:53 10/27/23 07:53 10/27/23 07:53 10/27/23 07:53 10/27/23 13:00 Laboratory Results - last 24 hr 10/26/23 17:30: WBC 7.4, RBC 3.86 L, Hgb 10.5 L, Hct 34.1 L, MCV 88.3, MCH 27.1, MCHC 30.7 L, RDW 15.5, Plt Count 328, MPV 8.9, Neut % (Auto) 68.9, Lymph % (Auto) 21.9, [place] % (Auto) 4.1, Eos % (Auto) 4.6, Baso % (Auto) 0.6, Neut # (Auto) 5.1, Lymph # (Auto) 1.6, [place] # (Auto) 0.3, Eos # (Auto) 0.3, Baso # (Auto) 0.1, Sodium 141, Potassium 3.7, Chloride 102, Carbon Dioxide 29, Anion Gap 13.7, BUN 13, Creatinine 0.70, Estimated Creat Clear 86, Estimated GFR 83, Est GFR ( Amer) 101, Glucose 131 H, Calcium 9.4 10/27/23 05:32: WBC 6.2, RBC 3.52 L, Hgb 9.7 L, Hct 31.5 L, MCV 89.4, MCH 27.5, MCHC 30.7 L, RDW 15.4, Plt Count 311, MPV 8.3, Neut % (Auto) 62.8, Lymph % (Auto) 25.7, [place] % (Auto) 4.5, Eos % (Auto) 6.1, Baso % (Auto) 0.9, Neut # (Auto) 3.9, Lymph # (Auto) 1.6, [place] # (Auto) 0.3, Eos # (Auto) 0.4, Baso # (Auto) 0.1, Sodium 138, Potassium 3.5, Chloride 102, Carbon Dioxide 34 H, Anion Gap 5.5, BUN 13, Creatinine 0.70, Estimated Creat Clear 92, Estimated GFR 83, E st GFR ( Amer) 101, Glucose 88 D, Calcium 8.9 I & O for Last 24 hours: Intake & Output 10/24/23 10/25/23 10/26/23 10/27/23 23:59 23:59 23:59 23:59 Intake Total 480 / 600 840 / 840 Output Total 0 / 0 600 / 600 Balance 480 / 600 240 / 240 Weight 99.79 kg 106.277 kg Constitutional Constitutional: no acute distress *Routine HEENT Exam Head: Present normocephalic Eye: Present EOMI and PERRL ENT: Present mucous membranes moist *Routine Neck Exam Neck: Present supple; Absent lymphadenopathy *Routine Respiratory Exam Respiratory: Present CTA bilaterally *Routine Cardiovascular Exam Cardiovascular: Present RRR *Routine Abdominal Exam Abdominal: Present soft and normoactive bowel sounds; Absent tenderness *Routine Extremities Exam Extremities: Absent cyanosis, clubbing or edema *Routine Skin Exam Skin: Present warm; Absent rash *Routine Neurological Exam Neurological: Present alert and oriented X3 Results Data Completed and Pending Labs on day of discharge: Labs from last 24 hours 10/27/23 10/26/23 05:32 17:30 WBC 6.2 7.4 RBC 3.52 L 3.86 L Hgb 9.7 L 10.5 L Hct 31.5 L 34.1 L MCV 89.4 88.3 MCH 27.5 27.1 MCHC 30.7 L 30.7 L RDW 15.4 15.5 Plt Count 311 328 MPV 8.3 8.9 Neut % (Auto) 62.8 68.9 Lymph % (Auto) 25.7 21.9 [place] % (Auto) 4.5 4.1 Eos % (Auto) 6.1 4.6 Baso % (Auto) 0.9 0.6 Neut # (Auto) 3.9 5.1 Lymph # (Auto) 1.6 1.6 [place] # (Auto) 0.3 0.3 Eos # (Auto) 0.4 0.3 Baso # (Auto) 0.1 0.1 Sodium 138 141 Potassium 3.5 3.7 Chloride 102 102 Carbon Dioxide 34 H 29 Anion Gap 5.5 13.7 BUN 13 13 Creatinine 0.70 0.70 Estimated Creat Clear 92 86 Estimated GFR 83 83 Est GFR ( Amer) 101 101 Glucose 88 D 131 H Calcium 8.9 9.4 DS: Diagnosis Discharge Diagnosis (1) Fracture of femoral condyle, left, closed: Status: Acute Code(s): S72.412A - Displaced unspecified condyle fracture of lower end of left femur, initial encounter for closed fracture Qualifiers: Encounter type: initial encounter Fracture alignment: nondisplaced Qualified Code(s): S72.415A - Nondisplaced unspecified condyle fracture of lower end of left femur, initial encounter for closed fracture Meds Home Medications and Allergies Home Medications Medication Instructions Recorded Confirmed Type acetaminophen 325 mg tablet 1,000 mg PO NEEDED PRN Pain 10/26/23 10/26/23 History (Tylenol) buspirone 10 mg tablet 10 mg PO BID 10/26/23 10/27/23 History chlorthalidone 25 mg tablet 25 mg PO DAILY 10/26/23 10/27/23 History escitalopram oxalate 10 mg tablet 10 mg PO DAILY 10/26/23 10/26/23 History gabapentin 600 mg tablet 600 mg PO TIDP PRN Neuropathic Pain 10/26/23 10/27/23 History ibuprofen 800 mg tablet 800 mg PO Q6HP PRN Pain, Mild 10/26/23 10/27/23 History montelukast 10 mg tablet 10 mg PO HS 10/26/23 10/26/23 History tizanidine 4 mg tablet 4 mg PO HSP Sleep 10/26/23 10/27/23 History valsartan 80 mg tablet 80 mg PO DAILY 10/26/23 10/26/23 History hydrocodone 7.5 mg-acetaminophen 1 tab PO Q6 PRN Severe Pain (7-10) 10/27/23 Rx 325 mg tablet 3 days #12 tabs New Prescriptions to Start Prescriptions: hydrocodone-acetaminophen Sarita Decker Allergies Allergy/AdvReac Type Severity Reaction Status Date / Time No Known Allergies Allergy Verified 10/26/23 12:25 Discharge Plan Disposition Patient Disposition: Home, Self-Care Condition: Good Follow up Plan Follow up with: Timothy Bryant DO [Staff Physician] - 11/11/23 9:45 am Prescriptions/Medication Reconciliation: New hydrocodone-acetaminophen 7.5-325 mg Tablet 1 tab PO Q6 PRN (Reason: Severe Pain (7-10)) 3 Days Qty: 12 0RF Continued acetaminophen [Tylenol] 325 mg Tablet 1,000 mg PO NEEDED PRN (Reason: Pain) gabapentin 600 mg tablet 600 mg PO TIDP PRN (Reason: Neuropathic Pain) Patient Comments: TAKE 1 TABLET BY MOUTH THREE TIMES DAILY NEEDED FOR PAIN. ibuprofen 800 mg Tablet 800 mg PO Q6HP PRN (Reason: Pain, Mild) tizanidine 4 mg tablet 4 mg PO HSP Patient Comments: TAKE 1 TO 2 TABLETS BY MOUTH EVERY DAY AT BEDTIME NEEDED FOR INSOMNIA valsartan 80 mg tablet 80 mg PO DAILY Patient Comments: TAKE 1 TABLET BY MOUTH ONCE DAILY chlorthalidone 25 mg tablet 25 mg PO DAILY buspirone 10 mg tablet 10 mg PO BID montelukast 10 mg tablet 10 mg PO HS Patient Comments: TAKE 1 TABLET BY MOUTH ONCE DAILY AT NIGHT escitalopram oxalate 10 mg Tablet 10 mg PO DAILY Problem Reconciliation Problems Reviewed?: Yes Patient Discharge Instructions ACTIVITY: Ambulate as tolerated DIET: continue same diet Patient Instructions: Exercises to Help Prevent Falls, How to Prevent Falls Providers Primary Care Provider: Malia Alston Admit Provider: Sarita Decker Attending Provider: Sarita Decker
[2023-10-27 15:06] VITALS: BMI 38.9
--- NOTE | 2023-10-28 14:30 | CARE MANAGER ---
Contacted patient related to hospital discharge. She states she is about the same. She has her medication and is aware of follow up appointments. MAGALYS [place]
== END 2023-10-27 15:20 | disposition home health service (06) ==
LOC: ER 16:15 → 2ND 16:29
PROVIDERS: Admitting Provider Internal Medicine; Emergency Provider Emergency Medicine; PCP Family Medicine; Visit Provider Internal Medicine
DX: S72.425A Nondisplaced fracture of lateral condyle of left femur, initial encounter for closed fracture; Z79.899 Other long term (current) drug therapy; W01.0XXA Fall on same level from slipping, tripping and stumbling without subsequent striking against object, initial encounter
CPT/HCPCS: 36415; 73552; 73562; 73590; 73700; 80048; 85025; 97162; 97166; 97530; 97760; 99285; G0378; J2405

== ENCOUNTER 2024-05-10 14:10 | Outpatient (CLI) | payer MEDICARE, SELFPAY | END 2024-05-10 23:59 | disposition home or self-care (01) | LOC: LAB.DROPOF 05-11 10:30 | PROVIDERS: PCP Student in an Organized Health Care Education/Training Program; Visit Provider Student in an Organized Health Care Education/Training Program | DX: N39.0 Urinary tract infection, site not specified (principal) | CPT/HCPCS: 87086; 87088; 87186 ==

== ENCOUNTER 2024-07-20 13:56 | Outpatient (CLI) | payer MEDICARE, SELFPAY ==
--- NOTE | 2024-07-20 14:05 | XR_ITS ---
FINAL REPORT CLINICAL HISTORY: knee pain COMPARISON: 10/26/2023 FINDINGS: LEFT KNEE Three views of the left knee were obtained. There is no acute fracture or dislocation. There are chronic postoperative changes of the proximal tibia. 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 There are moderate degenerative changes of the knee joint. There are changes of osteopenia. There is a small joint effusion. No acute soft tissue abnormality is seen. IMPRESSION: Chronic appearing fracture with intra-articular extension of the lateral femoral condyle. Post-ORIF changes proximal tibia without acute findings. Reviewed, Interpreted and Dictated by Viky English MD Transcribed by Kajal Kilpatrick Authenticated and . [facility]
--- NOTE | 2024-07-20 15:26 | XR_ITS ---
FINAL REPORT CLINICAL HISTORY: Left Tib fib pain, fall in dec. FINDINGS: LEFT TIBIA AND FIBULA There is a comminuted fracture of the distal fibular shaft which is not evident on prior exam. Fracture appears subacute. Postoperative changes of ORIF of the proximal tibia. Hardware is stable. The joint spaces are intact. There is no soft tissue abnormality. IMPRESSION: Comminuted, subacute healing fracture of the distal fibular shaft, new from prior exam. Postoperative changes of ORIF. Reviewed, Interpreted and Dictated by Viky English MD Transcribed by Carlotta Bar Authenticated and [facility]
== END 2024-07-20 23:59 | disposition home or self-care (01) ==
LOC: RAD 13:58
PROVIDERS: Visit Provider Orthopaedic Surgery
DX: M25.562 Pain in left knee (principal); S72.415A Nondisplaced unspecified condyle fracture of lower end of left femur, initial encounter for closed fracture
CPT/HCPCS: 73562; 73590

== ENCOUNTER 2024-08-03 14:05 | Outpatient (CLI) | payer MEDICARE, SELFPAY ==
--- NOTE | 2024-08-03 14:08 | XR_ITS ---
FINAL REPORT CLINICAL HISTORY: left tib fib pain COMPARISON: 07/20/2024 FINDINGS: Two views of the left tibia and fibula were obtained. There is a sideplate and screws securing the proximal tibial metaphysis. There is a healing transverse fracture through the distal fibula diaphysis. The mortise is intact. There is no soft tissue abnormality. IMPRESSION: Healing transverse fracture through the distal fibula diaphysis, similar to prior exam. Reviewed, Interpreted and Dictated by Cayden Slaughter MD Transcribed by Kajal Kilpatrick Authenticated and [facility]
== END 2024-08-03 23:59 | disposition home or self-care (01) ==
LOC: RAD 14:06
PROVIDERS: PCP Family Medicine; Visit Provider Physician Assistant Surgical
DX: M79.662 Pain in left lower leg (principal); S72.415A Nondisplaced unspecified condyle fracture of lower end of left femur, initial encounter for closed fracture
CPT/HCPCS: 73590

== ENCOUNTER 2024-08-24 12:15 | Outpatient (CLI) | payer MEDICARE, SELFPAY ==
--- NOTE | 2024-08-24 12:19 | XR_ITS ---
FINAL REPORT CLINICAL HISTORY: left ankle fx COMPARISON: 08/03/2024 FINDINGS: Two views of the left tibia and fibula were obtained. Post-ORIF changes of the proximal tibia are noted. There are changes of osteopenia. There is an ill-defined vertical fracture of the lateral tibial plateau. There is a healing fracture of the distal fibular shaft with mild displacement. There is a curvilinear fracture with sclerosis of the lateral femoral condyle. IMPRESSION: Multiple fractures as above, no significant change. Reviewed, Interpreted and Dictated by Viky English MD Transcribed by Kajal Kilpatrick Authenticated and [facility]
== END 2024-08-24 23:59 | disposition home or self-care (01) ==
LOC: RAD 12:17
PROVIDERS: PCP Family Medicine; Visit Provider Physician Assistant Surgical
DX: M25.572 Pain in left ankle and joints of left foot (principal); S72.415A Nondisplaced unspecified condyle fracture of lower end of left femur, initial encounter for closed fracture
CPT/HCPCS: 73590

== ENCOUNTER 2024-10-05 13:00 | Outpatient (CLI) | payer MEDICARE, SELFPAY ==
--- NOTE | 2024-10-05 13:08 | XR_ITS ---
FINAL REPORT CLINICAL HISTORY: lt tib fib fx COMPARISON: 08/24/2024 FINDINGS: Three views were obtained of the left tibia/fibula. There is a sideplate and screws securing the proximal left tibia. Hardware appears intact. A comminuted healing fracture is noted of the distal fibular diaphysis. There has been no significant interval change. The joint spaces are intact. There is no soft tissue abnormality. IMPRESSION: No significant interval change. Reviewed, Interpreted and Dictated by Cayden Slaughter MD Transcribed by Olivia Xavier Authenticated and [facility]
== END 2024-10-05 23:59 | disposition home or self-care (01) ==
LOC: RAD 13:01
PROVIDERS: PCP Family Medicine; Visit Provider Physician Assistant Surgical
DX: S82.402A Unspecified fracture of shaft of left fibula, initial encounter for closed fracture; S82.202A Unspecified fracture of shaft of left tibia, initial encounter for closed fracture; S82.832D Other fracture of upper and lower end of left fibula, subsequent encounter for closed fracture with routine healing
CPT/HCPCS: 73590

== ENCOUNTER 2025-05-25 09:00 | Outpatient (RCR) | payer MEDICARE, SELFPAY | END 2025-05-25 23:59 | disposition home or self-care (01) | LOC: PT 09:00 | PROVIDERS: PCP Family Medicine; Visit Provider Orthopaedic Surgery Adult Reconstructive Orthopaedic Surgery | DX: M17.12 Unilateral primary osteoarthritis, left knee (principal) | CPT/HCPCS: 97110; 97162; 97530 ==